=== PATIENT | female | born 1945 | race Caucasian/White ===

== ENCOUNTER 2020-02-09 20:02 | Emergency (ER) | payer MEDICARE, OTHER ==
[~2020-02-09] VITALS: Ht 162 cm; Wt 168.0 kg
[2020-02-09] MEDS ORDERED: fentaNYL INJECTION 100 MCG/2 ML AMP IVP ONE (20:15)
--- NOTE | 2020-02-09 20:23 | ED Lower Extremity ---
General Chief Complaint: Lower Extremity Stated Complaint: R KNEE PAIN Source: patient Exam Limitations: no limitations History of Present Illness Date Seen by Provider: Feb 09, 2020 Time Seen by Provider: 20:25 Initial Comments To ER by EMS and fire department (called for lift assist) after reports of severe right knee pain. This began while she was getting into her car. She had all of her weight placed on the right leg and complains of sudden onset of right knee pain as it bent behind her. This occurred during a twisting mechanism and she did not fall. Onset: just prior to arrival Severity: moderate Pain/Injury Location: right knee Method of Injury: twisted Modifying Factors: Worse With Movement Allergies and Home Medications Allergies Coded Allergies: No Known Drug Allergies (Unverified , 02/09/20) Patient Home Medication List Home Medication List Reviewed: Yes Review of Systems Constitutional: see HPI EENTM: see HPI Respiratory: no symptoms reported Cardiovascular: no symptoms reported Genitourinary: no symptoms reported Musculoskeletal: see HPI Skin: no symptoms reported Psychiatric/Neurological: No Symptoms Reported Physical Exam Vital Signs Vital Signs - First Documented 02/09/20 21:20 Temp 36.4 Pulse 88 Resp 20 B/P (MAP) 192/110 (137) Pulse Ox 93 O2 Delivery Room Air Capillary Refill : Height, Weight, BMI Height: 5'3.00" Weight: 308lbs. oz. kg; BMI Method: General Appearance: WD/WN, no apparent distress, obese Respiratory: no respiratory distress, no accessory muscle use Gastrointestinal: normal bowel sounds, non tender, soft Hips: bilateral hip non-tender, bilateral hip normal inspection, bilateral hip normal range of motion Legs: bilateral leg non-tender, bilateral leg normal inspection, bilateral leg normal range of motion Knees: right knee other (body habitus precludes good evaluation of the knee, her pannus hangs down over the right knee. Due to obesity I'm unable to tell if there is any joint effusion or deformity.) Ankles: bilateral ankle non-tender, bilateral ankle normal inspection, bilateral ankle normal range of motion Feet: bilateral foot non-tender, bilateral foot normal inspection, bilateral foot normal range of motion Neurologic/Psychiatric: alert, normal mood/affect Skin: normal color, warm/dry She is in quite a bit of pain, EMS gave 100 g of fentanyl in route to the hospital, I gave an additional 75 g here. She has a strong posterior tibial pulse. Progress/Results/Core Measures Results/Orders My Orders Orders - JUAN JONES APRN Knee, Right, 3 Views (02/09/20 20:03) Fentanyl Injection (Sublimaze Injection (02/09/20 20:15) Medications Given in ED Current Medications Medications Dose Ordered Sig/Lenny Route Start Time Stop Time Status Last Admin Dose Admin Fentanyl Citrate 75 mcg ONCE ONCE IVP 02/09/20 20:15 02/09/20 20:16 DC 02/09/20 20:37 75 MCG Vital Signs/I&O 02/09/20 02/09/20 21:20 22:05 Temp 36.4 Pulse 88 82 Resp 20 18 B/P (MAP) 192/110 (137) 164/83 Pulse Ox 93 94 O2 Delivery Room Air Room Air Diagnostic Imaging Diagonstic Imaging: Xray Comments NAME: ARMANDO YANG MED REC#: [id number] PT STATUS: REG ER : 1945 PHYSICIAN: JUAN JONES APRN ADMIT DATE: 02/09/20/ER Draft Date of Exam:02/09/20 KNEE, RIGHT, 3 VIEWS INDICATION: Right knee pain after fall. COMPARISON: None available. TECHNIQUE: Three views of right knee were obtained. FINDINGS: Severe tricompartmental degenerative changes are present. This includes multiple large marginal osteophytes which could potentially obscure a nondisplaced fracture. Allowing for this, no discrete fracture. No knee joint effusion. Subcutaneous edema. IMPRESSION: Severe tricompartmental osteoarthritis without appreciable superimposed acute fracture. Dictated on workstation # [id number] Dict: 02/09/202030 Trans: 02/09/202032 [facility] [id number] Interpreted by: MARYANN PALACIOS MD Electronically signed by: Departure Communication (Admissions) 6684-plain films are unremarkable. Patient states she does wants to go home. She has a strong palpable posterior tibial pulse. She has no tenderness to palpation over the right ankle or lower leg or upper leg. She states that she has a wheelchair at home and her home is set up with a ramp and is wheelchair accessible. She does have a cane that she can used to walk with. Her will be in route to pick her up and bring the wheelchair from home with him. 2135-pt was able to transfer self from bed to wheelchair with myself krishan and ally at standby. 2199-was able to get pt into car with minimal assistance other than pulling her back on a slide sheet. Impression Primary Impression: Acute internal derangement of right knee Disposition: HOME, SELF-CARE Condition: Stable Departure-Patient Inst. Decision time for Depature: 21:07 Referrals: SIMEON PENA MD (PCP) Primary Care Physician Patient Instructions: Internal Derangement of the Knee Add. Discharge Instructions: 1. Ice pack to the knee. Return to ER for any concerns or worsening symptoms. Follow-up with your doctor this week. All discharge instructions reviewed with patient and/or family. Voiced understanding. JUAN JONES SET UP MECHANIC AUTOMATIC LINE Feb 09, 2020 20:23
--- NOTE | 2020-02-09 20:34 | Diagnostic Imaging Report ---
INDICATION: Right knee pain after fall. COMPARISON: None available. TECHNIQUE: Three views of right knee were obtained. FINDINGS: Severe tricompartmental degenerative changes are present. This includes multiple large marginal osteophytes which could potentially obscure a nondisplaced fracture. Allowing for this, no discrete fracture. No knee joint effusion. Subcutaneous edema. IMPRESSION: Severe tricompartmental osteoarthritis without appreciable superimposed acute fracture. Dictated by: Dictated on workstation # [id number]
--- NOTE | 2020-02-09 21:00 | NUR ---
Pt arrives after twisting her leg while trying to get into a car causing her to go to the ground. Pt c/o right knee pain. Pt is obese and was unable to get up on her own; family had to call 911 to assist and brought her to the ED for x-ray. Pt has slight bruising to the right knee but no other deformity or swelling is noted.
[2020-02-09 22:05] VITALS: BP 164/83
--- NOTE | 2020-02-09 22:15 | NUR ---
Pt assisted to her vehicle by Shemar Bland, this nurse, and Dian. Pt was able to get herself into the back of the family vehicle with our assistance. Discussed with the patient how she could safely get herself out of the vehicle at home.
== END 2020-02-09 22:07 | disposition home or self-care (01) ==
LOC: EDUNIT# 20:02 → ER 20:05
DX: M23.91 Unspecified internal derangement of right knee (principal); E66.9 Obesity, unspecified
CPT/HCPCS: 73562

== ENCOUNTER 2020-04-27 18:29 | Inpatient (IN) | payer MEDICARE, OTHER ==
[~2020-04-27] VITALS: Ht 160 cm; Wt 175.6 kg
[2020-04-27] MEDS ORDERED: diphenhydrAMINE 25 MG TAB (BENADRYL) PO PRN (19:45)
[2020-04-27] MEDS ORDERED: ONDANSETRON 4 MG/2 ML (SDV) Z0FRAN IVP PRN (19:45)
[2020-04-27] MEDS ORDERED: VANCOMYCIN INJECTION 1,000 MG in NS (IVPB) 250 ML IV SCH (19:45)
[2020-04-27] MEDS ORDERED: morphine INJ 10 MG/ML 1ML (SYR OR VIAL) IVP PRN (19:45)
[2020-04-27] MEDS ORDERED: MELATONIN 3 MG TABLET PO PRN (19:45)
[2020-04-27] MEDS ORDERED: ALPRAZolam 0.25 MG (XANAX) TAB PO PRN (19:45)
[2020-04-27] MEDS ORDERED: CALCIUM CARBONATE 500 MG (TUMS) TAB.CHEW PO PRN (19:45)
[2020-04-27] MEDS ORDERED: DOCUSATE SODIUM 100 MG (COLACE) CAP PO PRN (19:45)
[2020-04-27] MEDS ORDERED: LOPERAMIDE 2 MG (IMODIUM) TABLET PO PRN (19:45)
[2020-04-27] MEDS ORDERED: ENOXAPARIN 60 MG/0.6 ML (LOVENOX) SYR ONE (21:01)
[2020-04-27] MEDS ORDERED: NS IV 1000 ML 1,000 ML ONE (21:01)
[2020-04-27] MEDS ORDERED: NS (IVPB) 250 ML ONE (21:01)
[2020-04-27] MEDS ORDERED: VANCOMYCIN 1000 MG/VIAL ONE (21:03)
[2020-04-27] MEDS: ACETAMINOPHEN 500 MG TAB (TYLENOL) PO PRN (21:44)
[2020-04-27] MEDS: SENNA W/DOCUSATE (SENOKOT S) TABLET PO SCH (21:58)
[2020-04-27] MEDS: NS IV 1000 ML 1,000 ML IV SCH (21:59)
[2020-04-27 22:04] LABS: BASOPHILS % (AUTO) 0 % (0-10); EOSINOPHILS % (AUTO) 0 % (0-10); HEMATOCRIT 36 % (35-52); HEMOGLOBIN 11.3 g/dL (11.5-16.0); LYMPHOCYTES # (AUTO) 0.5 10^3/uL (1.0-4.0); LYMPHOCYTES % (AUTO) 2 % (12-44); MEAN CORPUSCULAR HEMOGLOBIN 28 pg (25-34); MEAN CORPUSCULAR HGB CONC 32 g/dL (32-36); MEAN CORPUSCULAR VOLUME 88 fL (80-99); MEAN PLATELET VOLUME 9.5 fL (9.0-12.2); MONOCYTES # (AUTO) 1.2 10^3/uL (0.0-1.0); MONOCYTES % (AUTO) 5 % (0-12); NEUTROPHILS # (AUTO) 21.5 10^3/uL (1.8-7.8); NEUTROPHILS % (AUTO) 92 % (42-75); PLATELET COUNT 301 10^3/uL (130-400); WHITE BLOOD COUNT 23.4 10^3/uL (4.3-11.0)
[2020-04-27 22:15] LABS: ALBUMIN 3.3 GM/DL (3.2-4.5); POTASSIUM 4.4 MMOL/L (3.6-5.0)
[2020-04-27 22:16] LABS: CALCIUM 9.8 MG/DL (8.5-10.1)
[2020-04-27 22:18] LABS: TOTAL PROTEIN 6.6 GM/DL (6.4-8.2)
[2020-04-27 22:21] LABS: CREATININE SERUM 1.24 MG/DL (0.60-1.30)
[2020-04-27 22:26] LABS: ANISOCYTOSIS SLIGHT; BAND NEUTROPHILS 13 %; BASOPHILS % (MANUAL) 0 %; EOSINOPHILS % (MANUAL) 0 %; HYPOCHROMASIA SLIGHT; LYMPHOCYTES % (MANUAL) 2 %; MONOCYTES % (MANUAL) 2 %; NEUTROPHILS % (MANUAL) 83 %; ROULEAUX SLIGHT; TOXIC GRANULATION/VACUOLAZATIO 1+
[2020-04-28] MEDS ORDERED: NS (IVPB) 250 ML ONE (00:19)
[2020-04-28] MEDS ORDERED: VANCOMYCIN 500 MG/VIAL IV ONE (00:20)
[2020-04-28] MEDS ORDERED: VANCOMYCIN 1500 MG/NS 500 ML IVPB IV SCH ×2 (00:30)
[2020-04-28] MEDS: CEFEPIME INJECTION 1,000 MG in WATER (STERILE) FOR INJECTION 10 ML IV SCH ×4 (00:40→18:09)
[2020-04-28] MEDS: ENOXAPARIN 40 MG/0.4 ML (LOVENOX) SYR SC SCH ×3 (00:40→21:51)
[2020-04-28] MEDS: HYDROcodone/APAP 5 MG/325 MG (LORTAB) TAB PO PRN ×2 (03:11→12:21)
[2020-04-28 03:29] LABS: BASOPHILS # (AUTO) 0.1 10^3/uL (0.0-0.1); BASOPHILS % (AUTO) 0 % (0-10); EOSINOPHILS % (AUTO) 0 % (0-10); HEMATOCRIT 33 % (35-52); HEMOGLOBIN 10.5 g/dL (11.5-16.0); LYMPHOCYTES % (AUTO) 4 % (12-44); MEAN CORPUSCULAR HEMOGLOBIN 28 pg (25-34); MEAN CORPUSCULAR HGB CONC 32 g/dL (32-36); MEAN CORPUSCULAR VOLUME 89 fL (80-99); MEAN PLATELET VOLUME 9.4 fL (9.0-12.2); MONOCYTES % (AUTO) 4 % (0-12); NEUTROPHILS # (AUTO) 21.3 10^3/uL (1.8-7.8); NEUTROPHILS % (AUTO) 91 % (42-75); PLATELET COUNT 288 10^3/uL (130-400); WHITE BLOOD COUNT 23.6 10^3/uL (4.3-11.0)
[2020-04-28 03:44] LABS: ALBUMIN 3.1 GM/DL (3.2-4.5)
[2020-04-28 03:45] LABS: POTASSIUM 4.4 MMOL/L (3.6-5.0)
[2020-04-28 03:46] LABS: CALCIUM 8.5 MG/DL (8.5-10.1)
[2020-04-28 03:47] LABS: TOTAL PROTEIN 6.2 GM/DL (6.4-8.2)
[2020-04-28 03:49] LABS: BILIRUBIN,TOTAL 1.1 MG/DL (0.1-1.0)
[2020-04-28 03:50] LABS: PHOSPHORUS 4.3 MG/DL (2.3-4.7)
[2020-04-28 03:51] LABS: CREATININE SERUM 1.25 MG/DL (0.60-1.30)
[2020-04-28 03:54] LABS: MAGNESIUM 1.7 MG/DL (1.6-2.4)
[2020-04-28 06:00] VITALS: BP 120/54
[2020-04-28] MEDS: POTASSIUM CL 10MEQ/50ML IVPB 50 ML IV SCH (06:14)
[2020-04-28] MEDS: KCL 20 MEQ TAB (K-DUR) PO SCH (06:14)
[2020-04-28] MEDS: MAGNESIUM 1 GM/100 ML IVPB 100 ML IV SCH ×3 (06:14→06:32)
[2020-04-28] MEDS: NS IV 1000 ML 1,000 ML IV SCH ×3 (06:29→21:51)
--- NOTE | 2020-04-28 07:34 | NUR ---
Vanco - trough ordered for 04/29 @ 1100. Goal is 15 to 20.
--- NOTE | 2020-04-28 08:22 | Diagnostic Imaging Report ---
Indication: Sepsis, urinary tract infection and pneumonia Single AP view of the chest is obtained. Comparison is made to study one day earlier. There has been mild increase in pulmonary venous congestion and probable mild bilateral perihilar edema. Heart size at the upper limits of normal. Right jugular central venous catheter is in stable position with tip reaching the superior vena cava/right atrial junction. No pneumothorax is seen. IMPRESSION: Increasing pulmonary venous congestion and possible mild perihilar pulmonary edema. Dictated by: Dictated on workstation # [id number]
[2020-04-28] MEDS: SENNA W/DOCUSATE (SENOKOT S) TABLET PO SCH ×2 (08:58→20:54)
--- NOTE | 2020-04-28 10:36 | History & Physical-Hospitalist ---
JOSHUANeptaliLC LOVE, 04/28/20 1036: History of Present Illness HPI/Chief Complaint Ms. Kulkarni is a 75-year-old female who presents from the [place] ED for increasing shortness of breath. Per ED note, she began having chills, shortness of breath and cough for 3 days along with incontinence and decreased appetite for the same time period. In the ED, patient was satting 89% on RA. WBC 18, Hg 12.9, Hct 41.4, platelets 374. Na 141, K 5.1, Cl 103, CO2 22, anion gap 21, BUN 19, Cr 1.07, glucose 97. ABG pH 7.49, pCO2 35, pO2 51, HCO3 26. CRP 11.14. Lactic acid 19.6, mycoplasma negative. U/A 4+ bacteria, trace blood, 1+ leukocyte esterase, trace protein. Source: RN/ (notes from [facility]) Date Seen 04/28/20 Time Seen by a Provider: 09:20 Attending Physician Renae Diaz Rachel L MD Referring Physician Date of Admission Apr 27, 2020 at 20:42 Home Medications & Allergies Home Medications Reviewed patient Home Medication Reconciliation performed by pharmacy medication reconciliations weight reducing technician and/or nursing. Patients Allergies have been reviewed. Allergies Allergies Coded Allergies No Known Drug Allergies (Ivhedjvwdm79/29/20) Past Ngjzxjc-Bvfibb-Mpkzaf Hx Patient Social History Alcohol Use: Denies Use Recreational Drug Use: No Smoking Status: Never a Smoker Past Medical History Surgeries: Abdominal (hernia repair x2), Section (x2), Hysterectomy (with BSO) Cardiac: High Cholesterol, Hypertension : No Genitourinary: Kidney Stones Gastrointestinal: Abdominal Hernia (repaired x2) Musculoskeletal: Rheumatoid Arthritis Endocrine: Diabetes, Insulin dep Family History No Pertinent Family Hx Review of Systems Constitutional: chills Physical Exam Physical Exam Vital Signs Vital Signs - First Documented 04/27/20 04/27/20 04/27/20 20:42 20:50 21:44 Temp 37.9 Pulse 99 Resp 22 B/P (MAP) 150/84 (106) Pulse Ox 93 O2 Delivery Nasal Cannula O2 Flow Rate 5.00 Capillary Refill : Height, Weight, BMI Height: 5'3.00" Weight: 308lbs. oz. kg; 65.58 BMI Method: General Appearance: Obese Neck: No Lymphadenopathy (L), No Lymphadenopathy (R) Respiratory: Lungs Clear, Normal Breath Sounds Cardiovascular: Regular Rate, Rhythm Gastrointestinal: Normal Bowel Sounds, Soft Extremity: Pedal Edema Neurologic/Psychiatric: Alert, Oriented x3 Skin: Other (wound dehiscence) Results Results/Procedures Labs Laboratory Tests 04/27/20 21:37 04/28/20 03:05 Patient resulted labs reviewed. Imaging: Reviewed Imaging Films, Reviewed Imaging Report Assessment/Plan Assessment and Plan Acute hypoxic respiratory failure secondary to pneumonia * Pt currently on 5L NC * Is a COVID PUI at this time * On cefepime and vancomycin, day 1 Urinary tract infection * U/A from [facility] revealed 4+ bacteria, trace blood, 1+ leukocyte esterase, trace protein * Started on cefepime and vancomycin, day 1 * Mendez placed 04/27 for incontinence Insulin-dependent diabetes mellitus type 2, well-controlled * Will stop home Victoza, pioglitazone, glipizide * Continue home levemir 25iu HS * SSI A * Accuchecks ordered Hypertension * Pt takes home losartan * Will not restart at this time and will monitor for further changes Wound care * Patient states she has wound care but is unsure of accurate medications * Will order wound care consult * Discuss with son regarding medications Diet: CHO 60 DVT PPx: lovenox FULL CODE Dispo: likely >2midnights for treatment of acute respiratory failure Copy Copies To 1: LYNNE FOOTE KATHLEEN M MD 04/28/20 1228: Past Rjpqwfy-Codntg-Faqrsg Hx Past Med/Social Hx: Reviewed Nursing Past Med/Soc Hx Patient Social History Marrital Status: Employed/Student: retired Past Medical History Gastrointestinal: Abdominal Hernia (repaired x2) Musculoskeletal: Rheumatoid Arthritis Endocrine: Diabetes, Insulin dep Assessment/Plan Admission Diagnosis Acute hypoxic respiratory failure secondary to pneumonia * Pt currently on 5L NC * Is a COVID PUI at this time * On cefepime and vancomycin, day 1 Urinary tract infection * U/A from [facility] revealed 4+ bacteria, trace blood, 1+ leukocyte esterase, trace protein * Started on cefepime and vancomycin, day 1 * Mendez placed 04/27 for incontinence Insulin-dependent diabetes mellitus type 2, well-controlled * Will stop home Victoza, pioglitazone, glipizide * Continue home levemir 25iu HS * SSI A * Accuchecks ordered Hypertension * Pt takes home losartan * Will not restart at this time and will monitor for further changes Wound care * Patient states she has wound care but is unsure of accurate medications * Will order wound care consult * Discuss with son regarding medications Diet: CHO 60 DVT PPx: lovenox FULL CODE Dispo: likely >2midnights for treatment of acute respiratory failure Admission Status: Inpatient Order (span 2 midnights) Reason for Inpatient Admission: Multiple comorbities Copy Copies To 1: LYNNE FOOTE DO Supervisory-Addendum Brief Verification & Attestation Participated in pt care: history, MDM, physical Personally performed: exam, history, MDM, supervision of care Care discussed with: Medical Student Procedures: n/a Verification and Attestation of Medical Student E/M Service A medical student performed and documented this service in my presence. I reviewed and verified all information documented by the medical student and made modifications to such information, when appropriate. I personally performed the physical exam and medical decision making. Jose Palm, Apr 29, 2020,14:20 Patient notes that her biggest complaint was that she had been having chills for the last 2 to 3 days. She had some shortness of breath and had to be placed on 5 L nasal cannula. Rapid Covid and test was negative PCR is pending at this time. Patient is primarily concerned about the wound care of a dehisced suture line underneath her panniculus which has been being packed by her . She does not know the name of the packing that they have been using but she says it is in long strips. Her physical exam is unremarkable other than the obesity and I was not able to identify where the packing had been because of the weight of the panniculus. Plan to transfer to the fourth floor as she is currently hemodynamically stable and requiring minimal oxygen. Chest x-ray shows diffuse fluffy infiltrates that are concerning and so we will monitor closely for any deterioration. LC LANDAVERDE, Apr 28, 2020 10:36 JOSE PALM MD Apr 28, 2020 12:28
--- NOTE | 2020-04-28 11:00 | NUR ---
THIS RN TRANSPORTED PATIENT TO [facility] VIA BED. PATIENT BELONGINGS (GLASSES, ROSARY AND CANE) PLACED AT PATIENT BEDSIDE. REPORT GIVEN TO KAYCEE MEYER. CALL LIGHT WITHIN REACH, PATIENT POSITIONED IN BED WITH ASSISTANCE FROM KAYCEE MEYER. PATIENT INTRODUCED TO SURROUNDINGS.
--- NOTE | 2020-04-28 11:14 | NUR ---
Patient to room 418 at this time. Patient oriented to surroundings and staff. Denies needs or c/o at this time. Report from Anders
[2020-04-28] MEDS ORDERED: CEFEPIME 1 GM/10 ML (MAXIPIME) VIAL ONE ×2 (12:11→16:22)
[2020-04-28] MEDS: RT-ALBUTEROL INHALER HFA (VENTOLIN HFA) 18 GM IH SCH (14:56)
--- NOTE | 2020-04-28 15:32 | NUR ---
NOTIFIED BY RT, THAT FOLLOWING PATIENT ADMINISTRATION TO ALBUTEROL 1 PUFF, PATIENT REPORTED TO RT SHE IS ALLERGIC TO "SULFUR" IMMEDIATE ASSESSMENT AND PRESENCE AT BEDSIDE BY THIS RN. PHARMACY NOTIFIED AND ORDERED TO CLARIFY "SULFUR". PATIENT STATED IT IS THE SULFUR THAT IS IN [place] AND SHE HAD ANAPHYLACTIC RXN WITH [place] ADMINISTRATION. OTHER REPORTED ALLERGIES CODED, INCLUDING BENADRYL REPORTED BY PATIENT. DR MARTIN NOTIFIED OF THE ABOVE AND FLAGGING OF MEDICATIONS THAT ARE PROFILED ON THE JUN. NO NEW ORDERS. PATIENT IS CURRENTLY TALKING ON PHONE WITH FAMILY AT THIS TIME. PATIENT DID REPORT TO THIS RN SHE ONCE HAD AN ALLERGY TO PCN BUT NO LONGER IS ALLERGIC TO THIS MEDICATION, SHE WAS GIVEN IT DURING HER MOST RECENT WOUND INFECTION.
--- NOTE | 2020-04-28 16:00 | NUR ---
PATIENT HAS REMAINED ASYMPTOMATIC. NO S/S ALLERGIC RXN. DENIES NEEDS OR C/O. RN HAS REMAINED AT BEDSIDE. PATIENT COMMUNICATES FREQUENTLY WITH FAMILY VIA ROOM PHONE. CONT TO MONITOR.
[2020-04-28] MEDS ORDERED: LOSA100T57 PO (16:36)
[2020-04-28] MEDS ORDERED: GLIP5TAB13 (16:36)
[2020-04-28] MEDS ORDERED: PRAV20TA3 PO (16:36)
[2020-04-28] MEDS ORDERED: INSU100I29 SC (16:36)
[2020-04-28] MEDS ORDERED: PIOG15TA67 PO (16:36)
[2020-04-28] MEDS ORDERED: LIRA0.6P3 SC (16:36)
[2020-04-28] MEDS ORDERED: CALCIUM (16:39)
[2020-04-28] MEDS ORDERED: CHOL500049 PO (16:39)
[2020-04-28] MEDS ORDERED: ASCORBIC ACID (16:39)
--- NOTE | 2020-04-28 17:22 | NUR ---
NEGATIVE COVID PCR RESULTS FAXED FROM [facility] AND PLACED IN CHART. DR MARTIN NOTIFIED. NEW ORDERS TO D/C ISOLATION. PATIENT EDUCATED ON NEW ORDERS. DENIES NEEDS OR C/O AT THIS TIME.
[2020-04-28] MEDS: VANCOMYCIN 1500 MG/NS 500 ML IVPB IV SCH ×2 (18:09)
[2020-04-28] MEDS: inSUlin ASPART (NovoLOG) 1 UNIT/0.01 ML (CHARGE PER UNIT) SC SCH (21:35)
[2020-04-29] MEDS ORDERED: WATER (STERILE) FOR INJECTION 10 ML ONE ×2 (00:15→05:39)
[2020-04-29] MEDS ORDERED: CEFEPIME 1 GM/10 ML (MAXIPIME) VIAL ONE ×2 (00:15→05:39)
[2020-04-29] MEDS: CEFEPIME INJECTION 1,000 MG in WATER (STERILE) FOR INJECTION 10 ML IV SCH ×6 (00:32→23:14)
[2020-04-29] MEDS: RT-ALBUTEROL INHALER HFA (VENTOLIN HFA) 18 GM IH SCH ×3 (00:48→14:27)
[2020-04-29 05:07] LABS: BASOPHILS % (AUTO) 0 % (0-10); EOSINOPHILS # (AUTO) 0.2 10^3/uL (0.0-0.3); EOSINOPHILS % (AUTO) 2 % (0-10); HEMATOCRIT 33 % (35-52); LYMPHOCYTES % (AUTO) 8 % (12-44); MEAN CORPUSCULAR HEMOGLOBIN 28 pg (25-34); MEAN CORPUSCULAR HGB CONC 31 g/dL (32-36); MEAN CORPUSCULAR VOLUME 90 fL (80-99); MONOCYTES # (AUTO) 1.1 10^3/uL (0.0-1.0); MONOCYTES % (AUTO) 9 % (0-12); NEUTROPHILS % (AUTO) 81 % (42-75); PLATELET COUNT 302 10^3/uL (130-400); WHITE BLOOD COUNT 12.3 10^3/uL (4.3-11.0)
[2020-04-29 05:16] LABS: POTASSIUM 4.1 MMOL/L (3.6-5.0)
[2020-04-29 05:21] LABS: CREATININE SERUM 1.1 MG/DL (0.60-1.30); PHOSPHORUS 3.1 MG/DL (2.3-4.7)
[2020-04-29] MEDS: POTASSIUM CL 10MEQ/50ML IVPB 50 ML IV SCH (05:26)
[2020-04-29] MEDS: MAGNESIUM 1 GM/100 ML IVPB 100 ML IV SCH (05:27)
[2020-04-29] MEDS: inSUlin ASPART (NovoLOG) 1 UNIT/0.01 ML (CHARGE PER UNIT) SC SCH ×4 (05:27→21:00)
[2020-04-29] MEDS: KCL 20 MEQ TAB (K-DUR) PO SCH (05:27)
[2020-04-29] MEDS: NS IV 1000 ML 1,000 ML IV SCH (06:01)
--- NOTE | 2020-04-29 08:02 | Progress Note - Hospitalist ---
Subjective HPI/CC On Admission Date Seen by Provider: Apr 29, 2020 Time Seen by Provider: 12:00 Ms. Kulkarni is a 75-year-old female who presents from the [place] ED for increasing shortness of breath. Per ED note, she began having chills, shortness of breath and cough for 3 days along with incontinence and decreased appetite for the same time period. In the ED, patient was satting 89% on RA. WBC 18, Hg 12.9, Hct 41.4, platelets 374. Na 141, K 5.1, Cl 103, CO2 22, anion gap 21, BUN 19, Cr 1.07, glucose 97. ABG pH 7.49, pCO2 35, pO2 51, HCO3 26. CRP 11.14. Lactic acid 19.6, mycoplasma negative. U/A 4+ bacteria, trace blood, 1+ leukocyte esterase, trace protein. Subjective/Events-last exam Patient much better Updated on plan ECHO ordered Elevated BNP IV abx maintained Sugars improved Pain controlled Wheelchair will be brought in by Packing wound daily Review of Systems General: Fatigue, Malaise Pulmonary: Dyspnea Focused Exam Lactate Level 04/27/20 21:37: Lactic Acid Level 0.97 Objective Exam Vital Signs Vital Signs Date Time Temp Pulse Resp B/P (MAP) Pulse Ox O2 Delivery O2 Flow Rate FiO2 04/29/20 18:05 95 Nasal Cannula 3.00 04/29/20 16:25 36.2 74 19 139/65 (89) Capillary Refill : Less Than 3 Seconds General Appearance: No Apparent Distress, WD/WN, Chronically ill Respiratory: Chest Non Tender, Lungs Clear, Normal Breath Sounds, No Accessory Muscle Use, No Respiratory Distress Cardiovascular: Regular Rate, Rhythm, No Edema, No Gallop, No JVD, No Murmur, Normal Peripheral Pulses Neurologic/Psychiatric: Alert, Oriented x3, No Motor/Sensory Deficits, Normal Mood/Affect Results/Procedures Lab Laboratory Tests 04/29/20 04:13 Patient resulted labs reviewed. Imaging: Reviewed Imaging Films, Reviewed Imaging Report Assessment/Plan Assessment and Plan Assess & Plan/Chief Complaint Assessment: Acute hypoxic respiratory failure secondary to pneumonia: cefepime and vancomycin, day 2 Urinary tract infection Insulin-dependent diabetes mellitus type 2, well-controlled Hypertension Wound care DVT PPx: Lovenox Plan: Wound care Pain management Insulin Abx MICHAELA ELLISON DO Apr 29, 2020 08:02
[2020-04-29] MEDS: SENNA W/DOCUSATE (SENOKOT S) TABLET PO SCH ×2 (09:33→20:16)
[2020-04-29] MEDS: ENOXAPARIN 60 MG/0.6 ML (LOVENOX) SYR SC SCH ×2 (09:38→20:37)
[2020-04-29] MEDS ORDERED: TROUGH ORDER-PHARMACY XX NR (11:00)
[2020-04-29] MEDS: VANCOMYCIN 1500 MG/NS 500 ML IVPB IV SCH ×2 (13:39)
--- NOTE | 2020-04-29 14:35 | NUR ---
FAMILY BROUGHT PATIENTS OWN WHEELCHAIR, ASSISTED PATIENT TO SIT UP IN W/C, CALL LIGHT WITHIN REACH
[2020-04-29 16:25] VITALS: BP 139/65
[2020-04-29] MEDS: ACETAMINOPHEN 500 MG TAB (TYLENOL) PO PRN (16:38)
[2020-04-29] MEDS ORDERED: FUROSEMIDE 40 MG/4 ML INJ (LASIX) IVP ONE (17:15)
[2020-04-29] MEDS: RT-ALBUTEROL INHALER HFA (VENTOLIN HFA) 18 GM IH PRN (18:04)
[2020-04-29] MEDS ORDERED: FUROSEMIDE 40 MG/4 ML INJ (LASIX) ONE (18:15)
--- NOTE | 2020-04-29 18:33 | NUR ---
ADDITION TO ECHO FILLED OUT AND GIVEN TO CORRESPONDENCE COORDINATOR
[2020-04-29 20:25] VITALS: BP 141/65
[2020-04-29 23:29] VITALS: BP 137/64
[2020-04-30] MEDS: RT-ALBUTEROL INHALER HFA (VENTOLIN HFA) 18 GM IH PRN (02:08)
[2020-04-30] MEDS: RT-ALBUTEROL INHALER HFA (VENTOLIN HFA) 18 GM IH SCH ×2 (02:09→06:03)
[2020-04-30 04:09] VITALS: BP 168/73
[2020-04-30 04:50] LABS: BASOPHILS % (AUTO) 0 % (0-10); EOSINOPHILS # (AUTO) 0.2 10^3/uL (0.0-0.3); EOSINOPHILS % (AUTO) 2 % (0-10); HEMATOCRIT 32 % (35-52); HEMOGLOBIN 9.9 g/dL (11.5-16.0); LYMPHOCYTES # (AUTO) 0.9 10^3/uL (1.0-4.0); LYMPHOCYTES % (AUTO) 9 % (12-44); MEAN CORPUSCULAR HEMOGLOBIN 28 pg (25-34); MEAN CORPUSCULAR HGB CONC 31 g/dL (32-36); MEAN CORPUSCULAR VOLUME 90 fL (80-99); MEAN PLATELET VOLUME 9.5 fL (9.0-12.2); MONOCYTES # (AUTO) 1.1 10^3/uL (0.0-1.0); MONOCYTES % (AUTO) 10 % (0-12); NEUTROPHILS # (AUTO) 8.7 10^3/uL (1.8-7.8); NEUTROPHILS % (AUTO) 79 % (42-75); PLATELET COUNT 306 10^3/uL (130-400); WHITE BLOOD COUNT 11.1 10^3/uL (4.3-11.0)
[2020-04-30 05:00] LABS: POTASSIUM 4.1 MMOL/L (3.6-5.0)
[2020-04-30 05:02] LABS: TOTAL PROTEIN 6.3 GM/DL (6.4-8.2)
[2020-04-30 05:04] LABS: BILIRUBIN,TOTAL 0.7 MG/DL (0.1-1.0)
[2020-04-30 05:06] LABS: CREATININE SERUM 1.05 MG/DL (0.60-1.30)
[2020-04-30] MEDS: POTASSIUM CL 10MEQ/50ML IVPB 50 ML IV SCH (05:42)
[2020-04-30] MEDS: KCL 20 MEQ TAB (K-DUR) PO SCH (05:43)
[2020-04-30] MEDS: inSUlin ASPART (NovoLOG) 1 UNIT/0.01 ML (CHARGE PER UNIT) SC SCH ×2 (05:43→10:47)
[2020-04-30] MEDS: MAGNESIUM 1 GM/100 ML IVPB 100 ML IV SCH (05:43)
[2020-04-30] MEDS: VANCOMYCIN 1500 MG/NS 500 ML IVPB IV SCH ×2 (06:29)
[2020-04-30] MEDS: CEFEPIME INJECTION 1,000 MG in WATER (STERILE) FOR INJECTION 10 ML IV SCH ×2 (06:29→11:34)
[2020-04-30 07:42] VITALS: BP 141/74
[2020-04-30] MEDS: ENOXAPARIN 60 MG/0.6 ML (LOVENOX) SYR SC SCH (07:54)
[2020-04-30] MEDS: ACETAMINOPHEN 500 MG TAB (TYLENOL) PO PRN (07:54)
[2020-04-30] MEDS: SENNA W/DOCUSATE (SENOKOT S) TABLET PO SCH (07:57)
[2020-04-30] MEDS ORDERED: GLIP10TA13 PO (08:49)
[2020-04-30] MEDS ORDERED: CHOL200014 PO (08:49)
[2020-04-30] MEDS ORDERED: VIT C PO (08:49)
[2020-04-30] MEDS ORDERED: CALCIUM PO (08:49)
--- NOTE | 2020-04-30 08:50 | NUR ---
SPOKE WITH THE PT AND WENT THRU THE EXT MED HISTORY TO COMPLETE THE MED REC PT WAS ABLE TO NAME HER MEDICATIONS WELL WHEN/HOW SHE TAKES EACH GLIPIZIDE 10MG- DIRECTIONS ON THE EXT MED HISTORY SHOW TAB DAILY HOWEVER PT SAYS SHE IS TAKING TAB BID OTC MEDS: CALCIUM W/ VIT C VIT D3
[2020-04-30] MEDS ORDERED: FUROSEMIDE 40 MG/4 ML INJ (LASIX) IVP ONE (10:00)
[2020-04-30] MEDS ORDERED: FURO-125 PO (10:13)
[2020-04-30] MEDS ORDERED: LINE600T12 PO (10:13)
[2020-04-30] MEDS ORDERED: CEFD300C3 PO (10:13)
--- NOTE | 2020-04-30 10:14 | D/C HH Face to Face Order ---
D/C Face to Face Orders Reconcile Patient Problems Problems Reviewed?: Yes Instructions for Patient [facility] Home Health Patient Instructions/FollowUp: Dr Dai in 1 week Physician to follow Patient: Malaika Discharge Diet for Home: ADA Diet Patient Problems: UTI PNA surgical wound Patient Data-Allergies,Ht & Wt Patient Allergies: Coded Allergies: acetaminophen (Verified Allergy, Severe, Anaphylaxis, 04/28/20) dextromethorphan (Verified Allergy, Severe, Anaphylaxis, 04/28/20) doxylamine (Verified Allergy, Severe, Anaphylaxis, 04/28/20) pseudoephedrine (Verified Allergy, Severe, Anaphylaxis, 04/28/20) Sulfa (Sulfonamide Antibiotics) (Verified Allergy, Unknown, 04/28/20) diphenhydramine (Verified Allergy, Unknown, Hives, 04/28/20) sulfite (Verified Allergy, Unknown, 04/28/20) Height (Feet): 5 Height (Inches): 3.00 Weight (Pounds): 308 Home Health Need/Face to Face Date of Face to Face: Apr 30, 2020 Clinical Findings: Generalized weakness and fatigue, Instability, Muscle weakness, Shortness of breath, Unsteady gait I have seen Pt [id number]: Yes Discharged To: Home Diagnosis/Conditions: UTI PNA New home o2 Patient is Homebound due to: Angel fall risk due to instabilty, Muscle weakness, Pain w/ambulation, Shortness of breath/distress Homebound Status Due to the above stated illness, injury or surgical procedure (medical condition or diagnosis) and associated clinical findings, the patient is homebound because of his/her inability to leave home except with aid of a supportive device and/or person AND leaving the home requires a considerable and taxing effort or is medically contraindicated. Pt req the following assistanc: Walker, Wheelchair Home Health Nursing Orders Home Health Services Order: Nursing Services, [facility]-Evaluate & Treat, Physical Therapy-Evaluate & Treat Certify Stmt I certify that this patient is under my care and that I, a nurse practitioner or a physician; a anatomic pathology assistant working with me, had a face to face encounter that - meets the physician face to face encounter requirements with this patient as dated. MICHAELA ELLISON DO Apr 30, 2020 10:14
--- NOTE | 2020-04-30 10:15 | Discharge Summary ---
Diagnosis/Chief Complaint Date of Admission Apr 27, 2020 at 20:42 Date of Discharge Discharge Date: Apr 30, 2020 Discharge Diagnosis Assessment: Acute hypoxic respiratory failure secondary to pneumonia: cefepime and vancomycin, day 2 Urinary tract infection Insulin-dependent diabetes mellitus type 2, well-controlled Hypertension Wound care DVT PPx: Lovenox Plan: Wound care Pain management Insulin Abx 04/30/20: DC home Home O2 [place] Discharge Summary Discharge Physical Examination Allergies: Coded Allergies: acetaminophen (Verified Allergy, Severe, Anaphylaxis, 04/28/20) dextromethorphan (Verified Allergy, Severe, Anaphylaxis, 04/28/20) doxylamine (Verified Allergy, Severe, Anaphylaxis, 04/28/20) pseudoephedrine (Verified Allergy, Severe, Anaphylaxis, 04/28/20) Sulfa (Sulfonamide Antibiotics) (Verified Allergy, Unknown, 04/28/20) diphenhydramine (Verified Allergy, Unknown, Hives, 04/28/20) sulfite (Verified Allergy, Unknown, 04/28/20) Vitals & I&Os Vital Signs Date Time Temp Pulse Resp B/P (MAP) Pulse Ox O2 Delivery O2 Flow Rate FiO2 04/30/20 14:30 36.4 73 20 147/75 96 Nasal Cannula 2.00 General Appearance: Alert, Oriented X3, Cooperative Respiratory: Clear to Auscultation Cardiovascular: Regular Rate Neuro: Normal Gait Hospital Course Was the Problem List Reviewed?: Yes Hospital course: Pt had a short hospital course, she was admitted to the ICU for fever, leukocytosis and sepsis from UTI and pneumonia, morbid obesity precluded an in- depth look at the chest X-ray but she was Covid negative. She was placed on empiric antibiotics of Cefepime and Vanc. Pt was ultimately able to recover quickly. She was given Lasix to decrease any volume overload from IV fluids, gave them through central line after she was moved over from [facility] ER. Home O2 evaluation found the Pt to be in need of 3 liters of oxygen. She will resume [facility] health at time of discharge. She was insistent on leaving so I sent in prescription for Zyvox and Omnicef for antibiotic coverage since I did not have a source. Morbid obesity is a significant issue. Labs (last 24 hrs) Laboratory Tests 04/27/20 20:42: Lab Scanned Report LAB Reports 04/27/20 21:37: White Blood Count 23.4H, Red Blood Count 4.05, Hemoglobin 11.3L, Hematocrit 36, Mean Corpuscular Volume 88, Mean Corpuscular Hemoglobin 28, Mean Corpuscular Hemoglobin Concent 32, Red Cell Distribution Width 17.2H, Platelet Count 301, Mean Platelet Volume 9.5, Immature Granulocyte % (Auto) 1, Neutrophils (%) (Auto) 92H, Lymphocytes (%) (Auto) 2L, Monocytes (%) (Auto) 5, Eosinophils (%) (Auto) 0, Basophils (%) (Auto) 0, Neutrophils # (Auto) 21.5H, Lymphocytes # (Auto) 0.5L, Monocytes # (Auto) 1.2H, Eosinophils # (Auto) 0.0, Basophils # (Auto) 0.0, Immature Granulocyte # (Auto) 0.2H, Neutrophils % (Manual) 83, Lymphocytes % (Manual) 2, Monocytes % (Manual) 2, Eosinophils % (Manual) 0, Basophils % (Manual) 0, Band Neutrophils 13, Toxic Granulation 1+, Hypochromasia SLIGHT, Anisocytosis SLIGHT, Rouleau SLIGHT, Sodium Level 138, Potassium Level 4.4, Chloride Level 101, Carbon Dioxide Level 24, Anion Gap 13, Blood Urea Nitrogen 21H, Creatinine 1.24, Estimat Glomerular Filtration Rate 42, BUN/Creatinine Ratio 17, Glucose Level 134H, Lactic Acid Level 0.97, Calcium Level 9.8, Corrected Calcium 10.4H, Total Bilirubin 1.0, Aspartate Amino Transf (AST/SGOT) 12, Alanine Aminotransferase (ALT/SGPT) 7, Alkaline Phosphatase 76, B-Type Natriuretic Peptide 206.0H, Total Protein 6.6, Albumin 3.3, Procalcitonin 0.32H 04/28/20 03:05: White Blood Count 23.6H, Red Blood Count 3.74L, Hemoglobin 10.5L, Hematocrit 33L , Mean Corpuscular Volume 89, Mean Corpuscular Hemoglobin 28, Mean Corpuscular Hemoglobin Concent 32, Red Cell Distribution Width 17.3H, Platelet Count 288, Mean Platelet Volume 9.4, Immature Granulocyte % (Auto) 1, Neutrophils (%) (Auto) 91H, Lymphocytes (%) (Auto) 4L, Monocytes (%) (Auto) 4, Eosinophils (%) (Auto) 0, Basophils (%) (Auto) 0, Neutrophils # (Auto) 21.3H, Lymphocytes # (Auto) 1.0, Monocytes # (Auto) 1.0, Eosinophils # (Auto) 0.0, Basophils # (Auto) 0.1, Immature Granulocyte # (Auto) 0.3H, Sodium Level 139, Potassium Level 4.4, Chloride Level 105, Carbon Dioxide Level 23, Anion Gap 11, Blood Urea Nitrogen 23H, Creatinine 1.25, Estimat Glomerular Filtration Rate 42, BUN/Creatinine Ratio 18, Glucose Level 135H, Calcium Level 8.5, Corrected Calcium 9.2, Total Bilirubin 1.1H, Aspartate Amino Transf (AST/SGOT) 15, Alanine Aminotransferase (ALT/SGPT) 6, Alkaline Phosphatase 69, Total Protein 6.2L, Albumin 3.1L, Phosphorus Level 4.3, Magnesium Level 1.7 04/28/20 10:52: Glucometer 145H 04/28/20 16:11: Glucometer 159H 04/28/20 21:07: Glucometer 110 04/29/20 04:13: White Blood Count 12.3H, Red Blood Count 3.63L, Hemoglobin 10.0L, Hematocrit 33L , Mean Corpuscular Volume 90, Mean Corpuscular Hemoglobin 28, Mean Corpuscular Hemoglobin Concent 31L, Red Cell Distribution Width 17.4H, Platelet Count 302, Mean Platelet Volume 10.0, Immature Granulocyte % (Auto) 1, Neutrophils (%) (Auto) 81H, Lymphocytes (%) (Auto) 8L, Monocytes (%) (Auto) 9, Eosinophils (%) (Auto) 2, Basophils (%) (Auto) 0, Neutrophils # (Auto) 10.0H, Lymphocytes # (Auto) 1.0, Monocytes # (Auto) 1.1H, Eosinophils # (Auto) 0.2, Basophils # (Auto) 0.0, Immature Granulocyte # (Auto) 0.1, Sodium Level 138, Potassium Level 4.1, Chloride Level 105, Carbon Dioxide Level 24, Anion Gap 9, Blood Urea Nitrogen 23H, Creatinine 1.10, Estimat Glomerular Filtration Rate 48, BUN/Creatinine Ratio 21, Glucose Level 121H, Calcium Level 8.0L, Phosphorus Level 3.1, Magnesium Level 2.0 04/29/20 07:44: Glucometer 116H 04/29/20 11:36: Glucometer 120H 04/29/20 11:45: Vancomycin Level Trough 17.8 04/29/20 16:38: Glucometer 152H 04/29/20 20:22: Glucometer 190H 04/30/20 04:34: White Blood Count 11.1H, Red Blood Count 3.60L, Hemoglobin 9.9L, Hematocrit 32L, Mean Corpuscular Volume 90, Mean Corpuscular Hemoglobin 28, Mean Corpuscular Hemoglobin Concent 31L, Red Cell Distribution Width 17.2H, Platelet Count 306, Mean Platelet Volume 9.5, Immature Granulocyte % (Auto) 1, Neutrophils (%) (Auto ) 79H, Lymphocytes (%) (Auto) 9L, Monocytes (%) (Auto) 10, Eosinophils (%) (Auto) 2, Basophils (%) (Auto) 0, Neutrophils # (Auto) 8.7H, Lymphocytes # (Auto) 0.9L, Monocytes # (Auto) 1.1H, Eosinophils # (Auto) 0.2, Basophils # (Auto) 0.0, Immature Granulocyte # (Auto) 0.1, Sodium Level 140, Potassium Level 4.1, Chloride Level 107, Carbon Dioxide Level 25, Anion Gap 8, Blood Urea Nitrogen 21H, Creatinine 1.05, Estimat Glomerular Filtration Rate 51, BUN/Creatinine Ratio 20, Glucose Level 153H, Calcium Level 8.0L, Corrected Calcium 8.8, Magnesium Level 2.0, Total Bilirubin 0.7, Aspartate Amino Transf (AST/SGOT) 13, Alanine Aminotransferase (ALT/SGPT) 9, Alkaline Phosphatase 78, Total Protein 6.3L, Albumin 3.0L 04/30/20 10:17: Glucometer 154H Microbiology 04/27/20 MRSA Screen - Final, Complete MRSA not isolated Pending Labs Microbiology Date/Time Source Procedure Growth Status 04/27/20 21:37 Nasal MRSA Screen - Final MRSA not isolated Complete Laboratory Tests 04/27/20 20:42: Lab Scanned Report LAB Reports 04/27/20 21:37: White Blood Count 23.4, Red Blood Count 4.05, Hemoglobin 11.3, Hematocrit 36, Mean Corpuscular Volume 88, Mean Corpuscular Hemoglobin 28, Mean Corpuscular Hemoglobin Concent 32, Red Cell Distribution Width 17.2, Platelet Count 301, Mean Platelet Volume 9.5, Immature Granulocyte % (Auto) 1, Neutrophils (%) (Au to) 92, Lymphocytes (%) (Auto) 2, Monocytes (%) (Auto) 5, Eosinophils (%) (Auto) 0, Basophils (%) (Auto) 0, Neutrophils # (Auto) 21.5, Lymphocytes # (Auto) 0.5, Monocytes # (Auto) 1.2, Eosinophils # (Auto) 0.0, Basophils # (Auto) 0.0, Immature Granulocyte # (Auto) 0.2, Neutrophils % (Manual) 83, Lymphocytes % (Manual) 2, Monocytes % (Manual) 2, Eosinophils % (Manual) 0, Basophils % (Manual) 0, Band Neutrophils 13, Toxic Granulation 1+, Hypochromasia SLIGHT, Anisocytosis SLIGHT, Rouleau SLIGHT, Sodium Level 138, Potassium Level 4.4, Chloride Level 101, Carbon Dioxide Level 24, Anion Gap 13, Blood Urea Nitrogen 21, Creatinine 1.24, Estimat Glomerular Filtration Rate 42, BUN/Creatinine Ratio 17, Glucose Level 134, Lactic Acid Level 0.97, Calcium Level 9.8, Corrected Calcium 10.4, Total Bilirubin 1.0, Aspartate Amino Transf (AST/SGOT) 12, Alanine Aminotransferase (ALT/SGPT) 7, Alkaline Phosphatase 76, B-Type Natriuretic Peptide 206.0, Total Protein 6.6, Albumin 3.3, Procalcitonin 0.32 04/28/20 03:05: White Blood Count 23.6, Red Blood Count 3.74, Hemoglobin 10.5, Hematocrit 33, Mean Corpuscular Volume 89, Mean Corpuscular Hemoglobin 28, Mean Corpuscular Hemoglobin Concent 32, Red Cell Distribution Width 17.3, Platelet Count 288, Mean Platelet Volume 9.4, Immature Granulocyte % (Auto) 1, Neutrophils (%) (Auto) 91, Lymphocytes (%) (Auto) 4, Monocytes (%) (Auto) 4, Eosinophils (%) (Auto) 0, Basophils (%) (Auto) 0, Neutrophils # (Auto) 21.3, Lymphocytes # (Auto) 1.0, Monocytes # (Auto) 1.0, Eosinophils # (Auto) 0.0, Basophils # (Auto) 0.1, Immature Granulocyte # (Auto) 0.3, Sodium Level 139, Potassium Level 4.4, Chloride Level 105, Carbon Dioxide Level 23, Anion Gap 11, Blood Urea Nitrogen 23, Creatinine 1.25, Estimat Glomerular Filtration Rate 42, BUN/Creatinine Ratio 18, Glucose Level 135, Calcium Level 8.5, Corrected Calcium 9.2, Total Bilirubin 1.1, Aspartate Amino Transf (AST/SGOT) 15, Alanine Aminotransferase (ALT/SGPT) 6, Alkaline Phosphatase 69, Total Protein 6.2, Albumin 3.1, Phosphorus Level 4.3, Magnesium Level 1.7 04/28/20 10:52: Glucometer 145 04/28/20 16:11: Glucometer 159 04/28/20 21:07: Glucometer 110 04/29/20 04:13: White Blood Count 12.3, Red Blood Count 3.63, Hemoglobin 10.0, Hematocrit 33, Mean Corpuscular Volume 90, Mean Corpuscular Hemoglobin 28, Mean Corpuscular Hemoglobin Concent 31, Red Cell Distribution Width 17.4, Platelet Count 302, Mean Platelet Volume 10.0, Immature Granulocyte % (Auto) 1, Neutrophils (%) (Auto) 81, Lymphocytes (%) (Auto) 8, Monocytes (%) (Auto) 9, Eosinophils (%) (Auto) 2, Basophils (%) (Auto) 0, Neutrophils # (Auto) 10.0, Lymphocytes # (Auto) 1.0, Monocytes # (Auto) 1.1, Eosinophils # (Auto) 0.2, Basophils # (Auto) 0.0, Immature Granulocyte # (Auto) 0.1, Sodium Level 138, Potassium Level 4.1, Chloride Level 105, Carbon Dioxide Level 24, Anion Gap 9, Blood Urea Nitrogen 23, Creatinine 1.10, Estimat Glomerular Filtration Rate 48, BUN/Creatinine Ratio 21, Glucose Level 121, Calcium Level 8.0, Phosphorus Level 3.1, Magnesium Level 2.0 04/29/20 07:44: Glucometer 116 04/29/20 11:36: Glucometer 120 04/29/20 11:45: Vancomycin Level Trough 17.8 04/29/20 16:38: Glucometer 152 04/29/20 20:22: Glucometer 190 04/30/20 04:34: White Blood Count 11.1, Red Blood Count 3.60, Hemoglobin 9.9, Hematocrit 32, Mean Corpuscular Volume 90, Mean Corpuscular Hemoglobin 28, Mean Corpuscular Hemoglobin Concent 31, Red Cell Distribution Width 17.2, Platelet Count 306, Mean Platelet Volume 9.5, Immature Granulocyte % (Auto) 1, Neutrophils (%) (Auto) 79, Lymphocytes (%) (Auto) 9, Monocytes (%) (Auto) 10, Eosinophils (%) (Auto) 2, Basophils (%) (Auto) 0, Neutrophils # (Auto) 8.7, Lymphocytes # (Auto) 0.9, Monocytes # (Auto) 1.1, Eosinophils # (Auto) 0.2, Basophils # (Auto) 0.0, Immature Granulocyte # (Auto) 0.1, Sodium Level 140, Potassium Level 4.1, Chloride Level 107, Carbon Dioxide Level 25, Anion Gap 8, Blood Urea Nitrogen 21, Creatinine 1.05, Estimat Glomerular Filtration Rate 51, BUN/Creatinine Ratio 20, Glucose Level 153, Calcium Level 8.0, Corrected Calcium 8.8, Magnesium Level 2.0, Total Bilirubin 0.7, Aspartate Amino Transf (AST/SGOT) 13, Alanine Aminotransferase (ALT/SGPT) 9, Alkaline Phosphatase 78, Total Protein 6.3, Albumin 3.0 04/30/20 10:17: Glucometer 154 Discharge Home Medications: Active Scripts Active Lasix (Furosemide) 20 Mg Tablet 20 Mg PO Q48H Zyvox (Linezolid) 600 Mg Tablet 600 Mg PO BID Cefdinir 300 Mg Capsule 300 Mg PO BID Reported [Calcium + Vit C] 1 Ea PO DAILY Glipizide 10 Mg Tablet 5 Mg PO 1200,200 TAKES OF A 5MG Vitamin D3 (Cholecalciferol (Vitamin D3)) 50 Mcg Tablet 50 Mcg PO DAILY Pravastatin Sodium 20 Mg Tablet 20 Mg PO HS Losartan Potassium 100 Mg Tablet 100 Mg PO 1200 Pioglitazone HCl 15 Mg Tablet 15 Mg PO 1200 Levemir Flextouch (Insulin Detemir) 100 Unit/1 Ml Insuln.pen 25 Unit SC DAILY Victoza 3-Robson (Liraglutide) 0.6 Mg/0.1 Ml Pen.injctr 1.8 Mg SC DAILY Instructions to patient/family Please see electronic discharge instructions given to patient. MICHAELA ELLISON DO Apr 30, 2020 10:15
--- NOTE | 2020-04-30 10:26 | Progress Note ---
SHAHAB KHAN MED STUDENT 04/30/20 1026: Progress Note Patient presented to [place] ED on 04/28/20 with SOA. She reported a history of chills, SOA, and cough for 3 days along with incontinence and decreased appetite. Patient's history notable for morbid obesity, HTN, T2DM. Patient had an O2 sat of 89% on RA, WBC 18, Hg 12.9, Hct 41.4, platelets 374. Na 141, K 5.1, Cl 103, CO2 22, anion gap 21, BUN 19, Cr 1.07, glucose 97. ABG pH 7.49, pCO2 35, pO2 51, HCO3 26. CRP 11.14. Lactic acid 19.6. Testing for mycoplasma pneumonia came back negative. Testing for UTI was positive with 4+ bacteria and 1+ leukocy te esterase. Patient was transferred to [facility] and admitted for pneumonia, UTI, and possible sepsis. Vancomycin and Cefepime were started and patient was placed on oxygen. Catheter was placed for her urinary incontinence and morbid obesity. Lovenox was also initiated for DVT prophylaxis. Patient also has been receiving wound care for a diabetic-associated wound and they were consulted to continue care during her stay. Insulin started for elevated blood glucose levels. Patient's SOA, cough, chills, and lab values gradually improved over her stay and she expressed wishes to return home on 04/30/20. Patient is unable to ambulate or fully care for herself, but she states she has competent care from her at home. Patient's BNP was noted to be elevated, so a previous echo was referenced and a new echo ordered prior to DC. Patient also was evaluated for home O2 for her SOA secondary to her pneumonia and probable CHF. RENAE ELLISON DO 05/01/20 0545: Supervisory-Addendum Brief Verification & Attestation Participated in pt care: history, MDM, physical Personally performed: exam, history, MDM, supervision of care Care discussed with: Medical Student Procedures: n/a Results interpretation: Verified all documentation Verification and Attestation of Medical Student E/M Service A medical student performed and documented this service in my presence. I rev iewed and verified all information documented by the medical student and made modifications to such information, when appropriate. I personally performed the physical exam and medical decision making. Renae Ellison, May 01, 2020,05:44 SHAHAB KHAN MED STUDENT Apr 30, 2020 10:26 RENAE ELLISON DO May 01, 2020 05:45
--- NOTE | 2020-04-30 10:36 | NUR ---
pt was taken off O2 and dropped O2 sat below 88% in a matter of minutes. pt was placed back on 3 LN at this time with good saturation. Addendum: 04/30/20 at 1036 by RADHA ROMERO RT Amended: Links added.
[2020-04-30] MEDS ORDERED: glipiZIDE 5 MG (GLUCOTROL) TAB PO SCH (10:45)
--- NOTE | 2020-04-30 10:52 | Physical Therapy Evaluation ---
PT Evaluation-General Medical Diagnosis Admission Date Apr 27, 2020 at 20:42 Medical Diagnosis: pneumonia/sepsis Onset Date: Apr 27, 2020 Therapy Diagnosis Therapy Diagnosis: debility Height/Weight Height (Feet): 5 Height (Inches): 3.00 Weight (Pounds): 308 Precautions Precautions/Isolations: Fall Prevention, Standard Precautions Weight Bear Status Right Lower Extremity: Right Non Weight Bearing Left Lower Extremity: Left Non Weight Bearing Referral Physician: Néstor Reason for Referral: Evaluation/Treatment Medical History Pertinent Medical History: DM, HTN, Rheumatoid Arthritis Additional Medical History morbid obesity Current History TFR from [facility] [place] secondary to SOA Reviewed History: Yes Social History Home: Single Level Current Living Status: Other Family Entry Into Home: Ramp Prior Prior Level of Function SCALE: Activities may be completed with or without assistive devices. 7-Yqawrvlqlq-zxryvmt completes the activity by him/herself with no assistance from a helper. 5-Set-up or Clean-up Assistance-helper sets up or cleans up; patient completes activity. May assists only prior to or following the activity. 4-Supervision or Touching Assistance-helper provides verbal cues and/or touching/steadying and/or contact guard assistance as patient completes activity. Assistance may be provided throughout the activity or intermittently. 3-Partial/Moderate Assistance-helper does LESS THAN HALF the effort. May lifts, holds or supports trunk or limbs, but provides less than half the effort. 2-Substantial/Maximal Assistance-helper does MORE THAN HALF the effort. May lifts or holds trunk or limbs and provides more than half the effort. 5-Etetnxond-axlawx does ALL the effort. Patient does none of the effort to complete the activity. Or, the assistance of 2 or more helpers is required for the patient to complete the activity. If activity was not attempted, code reason: 7-Patient Refused. 9-Not Applicable-not attempted and the patient did not perform the activity before the current illness, exacerbation or injury. 10-Not Attempted due to Environmental Limitations-(lack of equipment, weather restraints, etc.). 88-Not Attempted due to Medical Conditions or Safety Concerns. Bed Mobility: 2 Transfers (B,C,W/C): 2 Gait: 5 Stairs: 9 Wheelchair Mobility: 5 Indoor Mobility (Ambulation): Independent Stairs: Not Applicalbe Prior Devices Use: Manual wheelchair, Walker PT Evaluation-Current Subjective Patient agrees to PT. Objective Patient Orientation: Normal For Age Attachments: Oxygen, Mendez Catheter, IV ROM/Strength ROM Lower Extremities limited due to size Strength Lower Extremities 3/5 grossly bilateral LE Integumentary/Posture Integumentary refer to nursing notes Bladder Incontinence: Mendez Cath Posture WFL Neuromuscular (Tone, Coordination, Reflexes) grossly intact Sensory Vision: Wears Glasses Hearing: Functional Transfers Lying to Sitting/Side of Bed(Q: 2 (patient wanted to sit EOB) Balance Sitting Static: Normal Sitting Dynamic: Fair Assessment/Needs 75 y.o. female, will benefit from skilled PT to address functional strength and mobility. This PT recommends home health PT upon dismissal to home. Rehab Potential: Fair PT Longterm Goals Contract Attorney Goals PT Contract Attorney Goals Time Frame: May 04, 2020 Sit to Lying (QC): 3 Lying-Sitting on Side/Bed(QC): 3 Sit to Stand (QC): 4 PT Plan Problem List Problem List: Activity Tolerance, Functional Strength, Balance, Transfer, Bed Mobility, Other (morbid obesity) Treatment/Plan Treatment Plan: Continue Plan of Care Treatment Plan: Bed Mobility, Education, Functional Activity Vj, Functional Strength, Safety, Therapeutic Exercise, Transfers Treatment Duration: May 04, 2020 Frequency: 5 times per week Estimated Hrs Per Day: .25 hour per day Patient and/or Family Agrees t: Yes Time/GCodes Time In: 845 Time Out: 905 Total Billed Treatment Time: 20 Total Billed Treatment 1 visit EVModC 20 min KAREN HUERTAS PT Apr 30, 2020 10:52
--- NOTE | 2020-04-30 11:31 | Consultation-Cardiology ---
HPI-Cardiology Cardiology Consultation: Date of Consultation 04/30/20 Time Seen by a Provider: 11:15 Date of Admission 04-29-20 Attending Physician Michaela Ellison DO Admitting Physician Veronica Winters MD Consulting Physician Fifi Moya MD HPI: Chief Complaint: Sepsis Ms. Yang is a 75 yr old female seen in 418 [place] [facility] [place] She reports starting on Thursday night she began to have shaking chills, she took Tylenol which did relieve them, however she had another episode on Thursday, which they Tylenol did not provide relief at that time. She denies any c/o CP, SOB, palpitations. She uses a w/c. She states she had abdominal surgery in Dec 2019 and has been undergoing wound care treatment d/t wound dehiscence. She has chronic bilat LE swelling. Reports chronic redness to left lower leg. States she is going home this afternoon. Review of Systems-Cardiology Review of Systems Constitutional: chills, fever Eyes: No vision change Ears/Nose/Throat: No recent hearing loss Respiratory: As described under HPI Cardiovascular: As described under HPI Gastrointestinal: No diarrhea, No nausea, No vomiting Genitourinary: No dysuria; frequency Musculoskeletal: joint pain (chronic) Skin: other (wound to post surgical abd surgery in Dec 2019); No rash on exposed areas, No ulcerations on exposed areas Psychiatric/Neurological: No anxiety, No depression, No focal weakness, No syncope Hematologic: No bleeding abnormalities [id number] Hx Patient Social History Marrital Status: Employed/Student: retired Smoking Status: Never a Smoker Have you traveled recently?: No Alcohol Use?: No Pt feels they are or have been: No Past Medical History PMH As described under Assessment. Family Medical History Family Medical History: She reports her mother had CHF Allergies and Home Medications Allergies Coded Allergies: acetaminophen (Verified Allergy, Severe, Anaphylaxis, 04/28/20) dextromethorphan (Verified Allergy, Severe, Anaphylaxis, 04/28/20) doxylamine (Verified Allergy, Severe, Anaphylaxis, 04/28/20) pseudoephedrine (Verified Allergy, Severe, Anaphylaxis, 04/28/20) Sulfa (Sulfonamide Antibiotics) (Verified Allergy, Unknown, 04/28/20) diphenhydramine (Verified Allergy, Unknown, Hives, 04/28/20) sulfite (Verified Allergy, Unknown, 04/28/20) Home Medications Cefdinir 300 Mg Capsule, 300 MG PO BID Prescribed by: MICHAELA ELLISON on 04/30/20 1013 Cholecalciferol (Vitamin D3) 50 Mcg Tablet, 50 MCG PO DAILY, (Reported) Furosemide 20 Mg Tablet, 20 MG PO Q48H Prescribed by: MICHAELA ELLISON on 04/30/20 1013 Glipizide 10 Mg Tablet, 5 MG PO 1200,200, (Reported) TAKES OF A 5MG Insulin Detemir 100 Unit/1 Ml Insuln.pen, 25 UNIT SC DAILY, (Reported) Linezolid 600 Mg Tablet, 600 MG PO BID Prescribed by: MICHAELA ELLISON on 04/30/20 1013 Liraglutide 0.6 Mg/0.1 Ml Pen.injctr, 1.8 MG SC DAILY, (Reported) Losartan Potassium 100 Mg Tablet, 100 MG PO 1200, (Reported) Pioglitazone HCl 15 Mg Tablet, 15 MG PO 1200, (Reported) Pravastatin Sodium 20 Mg Tablet, 20 MG PO HS, (Reported) [Calcium + Vit C] , 1 EA PO DAILY, (Reported) Physical Exam-Cardiology Physical Exam Vital Signs/I&O 04/29/20 04/30/20 04/30/20 04/30/20 23:29 02:09 04:09 06:04 Temp 36.6 Pulse 71 80 Resp 21 24 B/P (MAP) 137/64 (88) 168/73 (104) Pulse Ox 96 94 97 94 O2 Delivery Nasal Cannula Nasal Cannula Nasal Cannula Nasal Cannula O2 Flow Rate 3.00 3.00 3.00 3.00 04/30/20 04/30/20 04/30/20 07:42 09:00 10:33 Temp 36.8 Pulse 79 Resp 20 B/P (MAP) 141/74 (96) Pulse Ox 95 87 O2 Delivery Nasal Cannula Nasal Cannula O2 Flow Rate 3.00 3.00 3.00 04/30/20 00:00 Intake Total 2175 ml Output Total 1600 ml Balance 575 ml Capillary Refill : Less Than 3 Seconds Constitutional: well-developed, well-nourished HEENT: PERRL, hearing is well preserved, oral hygience is good Neck: No carotid bruit; carotid pulses are 2 + bilaterally Respiratory: No accessory muscle use, No respiratory distress; chest expansion is symmetric, chest is bilaterally symmetric, lungs clear to auscultation Cardiovascular: regular rate-rhythm; No JVD; S1 and S2 Gastrointestinal: No tender; soft, round, audible bowel sounds Extremities: other (bilat non-pitting edema) Neurologic/Psychiatric: grossly intact (moves all extremities) Skin: other (abdominal wound; dressing not removed. Redness to LLE - states chronic) Data Review Labs Laboratory Tests 04/29/20 11:36: Glucometer 120H 04/29/20 11:45: Vancomycin Level Trough 17.8 04/29/20 16:38: Glucometer 152H 04/29/20 20:22: Glucometer 190H 04/30/20 04:34: White Blood Count 11.1H, Red Blood Count 3.60L, Hemoglobin 9.9L, Hematocrit 32L, Mean Corpuscular Volume 90, Mean Corpuscular Hemoglobin 28, Mean Corpuscular Hemoglobin Concent 31L, Red Cell Distribution Width 17.2H, Platelet Count 306, Mean Platelet Volume 9.5, Immature Granulocyte % (Auto) 1, Neutrophils (%) (Auto) 79H, Lymphocytes (%) (Auto) 9L, Monocytes (%) (Auto) 10, Eosinophils (%) (Auto) 2, Basophils (%) (Auto) 0, Neutrophils # (Auto) 8.7H, Lymphocytes # (Auto) 0.9L, Monocytes # (Auto) 1.1H, Eosinophils # (Auto) 0.2, Basophils # (Auto) 0.0, Immature Granulocyte # (Auto) 0.1, Sodium Level 140, Potassium Level 4.1, Chloride Level 107, Carbon Dioxide Level 25, Anion Gap 8, Blood Urea Nitrogen 21H, Creatinine 1.05, Estimat Glomerular Filtration Rate 51, BUN/Creatinine Ratio 20, Glucose Level 153H, Calcium Level 8.0L, Corrected Calcium 8.8, Magnesium Level 2.0, Total Bilirubin 0.7, Aspartate Amino Transf (AST/SGOT) 13, Alanine Aminotransferase (ALT/SGPT) 9, Alkaline Phosphatase 78, Total Protein 6.3L, Albumin 3.0L 04/30/20 10:17: Glucometer 154H Microbiology 04/27/20 MRSA Screen - Final, Complete MRSA not isolated Laboratory Tests 04/29/20 04:13 04/30/20 04:34 Radiology NAME: ARMANDO YANG [facility] REC#: [id number] PT STATUS: ADM IN : 1945 PHYSICIAN: MICHAELA ELLISON DO ADMIT DATE: 04/27/20/ICU Signed Date of Exam:04/28/20 CHEST 1 VIEW, AP/PA ONLY Indication: Sepsis, urinary tract infection and pneumonia Single AP view of the chest is obtained. Comparison is made to study one day earlier. There has been mild increase in pulmonary venous congestion and probable mild bilateral perihilar edema. Heart size at the upper limits of normal. Right jugular central venous catheter is in stable position with tip reaching the superior vena cava/right atrial junction. No pneumothorax is seen. IMPRESSION: Increasing pulmonary venous congestion and possible mild perihilar pulmonary edema. Dictated by: Dictated on workstation # [id number] Dict: 04/28/20 0711 Trans: 04/28/20 0936 [facility] [id number] Interpreted by: SKINNY RAGSDALE MD Electronically signed by: SKINNY RAGSDALE MD 04/28/20 0936 A/P-Cardiology Assessment/Admission Diagnosis UTI with sepsis - management per medical services Pneumonia - management per medical services Echocardiogram of Jan 2020 from [facility] [place] LVEF 50-55%. Mild MR. HTN HLD Obesity S/P abdominal surgery in Dec 2019 - resulting in dehiscence - following with wound care Discussion and Recomendations UTI with sepsis - management per medical services Received echocardiogram from [facility] done in Jan 2020, she does not wish to have another echocardiogram Continue current medication regimen She wishes to go home today - d/c orders already in place per medical services Advise out pt f/u VICKIE BEARDEN Apr 30, 2020 11:31
[2020-04-30] MEDS ORDERED: ACETAMINOPHEN 325 MG TABLET PO PRN (12:00)
[2020-04-30] MEDS ORDERED: PIOGLITAZONE 30MG (ACTOS) TAB PO SCH (12:00)
[2020-04-30] MEDS ORDERED: LOSARTAN 100 MG (COZAAR) TABLET PO SCH (12:00)
--- NOTE | 2020-04-30 12:05 | NUR ---
DISCHARGE PLANNING: Patient to be discharge today to home with new oxygen needs and an order for HHC. She is using [facility] as she has family who works for them and she will have [facility] to resume after discharge. I have spoken to [facility] and to [facility]. SHe has her w/c in the room and her has a w/c accessible van that he will pick her up in. She will be ready for discharge after her ECHO is completed. NO other needs voiced at this time.
[2020-04-30 12:12] VITALS: BP 147/75
[2020-04-30 14:30] VITALS: BP 147/75
--- NOTE | 2020-04-30 15:50 | NUR ---
"RD ASSESSMENT PMHx: hypercholesterolemia; HTN; RA; DM; PT INTERACTION: Pt was awake and pleasant during nutrition consult for MST score. Pt states current appetite is good. Note avg PO intake 71% x2d, per chart review. Pt states following a regular diet at home, and has no issues with chewing/swallowing food. Pt states some recent issues with constipation, and that her last BM was 04/26. Note pt currently on bowel regimen of senna BID, per chart review. Pt states current DM management is good, and that her last HbA1c was 6.4 (unknown date). Pt states no recent wt changes. Note recent 17# wt gain x2mon, per chart review. Upon visual assessment, pt appears very well nourished with no visible signs of muscle/fat wasting and a BMI of 68.6 (obese class III for age). Given wt hx, PO intake, and visual assessment, pt does not meet criteria for malnutrition per ASPEN guidelines. Est. kcal needs: 7276-8570 kcal | 25-30 kcal/kg IBW, based on IBW of 52.3 kg (115#) Est. Pro needs: 42-52 g Pro | 0.8-1.0 g Pro/kg IBW PES STATEMENT: Inadequate oral intake (NI-2.1) related to loss of appetite and constipation, as evidenced by pt interview, and avg PO intake 71% x2d. INTERVENTION: Continue with current diet order of CHO 60g/m 0snack diet. Discussed and provided diet education on DM management. Answered questions about common foods in pt's diet and their relationship to DM management. Pt verbalized understanding of information provided. Will continue to follow and reassess as pt needs, intake, and status change. Juliane RUFFIN, MS RD LD [phone] cell"
--- NOTE | 2020-04-30 16:04 | Consultation-Cardiology ---
HPI-Cardiology Cardiology Consultation: Date of Consultation 04/30/20 Time Seen by a Provider: 13:30 Date of Admission Attending Physician Renae Ellison DO Admitting Physician Veronica Winters MD Consulting Physician ROSALINE HAQ MD, MA, FACP, FACC, [facility] [place], CCD[facility] HPI: Chief Complaint: Reason for consultation: Shortness of breath HPI Ms. Kulkarni is a 75 yr old female seen in 418 from [facility] [place]. She reports starting on Thursday night she began to have shaking chills, she took Tylenol which did relieve them, however she had another episode on Thursday, which they Tylenol did not provide relief at that time. She thinks she may have some shortness of breath then, none at this time. She denies any c/o CP or palpitations. She uses a w/c. She states she had abdominal surgery in Dec 2019 and has been undergoing wound care treatment d/t wound dehiscence. She has chronic bilat LE swelling. Reports chronic redness to left lower leg. States she is going home this afternoon. Review of Systems-Cardiology Review of Systems Constitutional: chills, fever Eyes: No vision change Ears/Nose/Throat: No recent hearing loss Respiratory: As described under HPI Cardiovascular: As described under HPI Gastrointestinal: No diarrhea, No nausea, No vomiting Genitourinary: No dysuria; frequency Musculoskeletal: joint pain (chronic) Skin: other (wound to post surgical abd surgery in Dec 2019); No rash on exposed areas, No ulcerations on exposed areas Psychiatric/Neurological: No anxiety, No depression, No focal weakness, No syncope Hematologic: No bleeding abnormalities [id number] Hx Patient Social History Marrital Status: Employed/Student: retired Smoking Status: Never a Smoker Have you traveled recently?: No Alcohol Use?: No Pt feels they are or have been: No Past Medical History PMH As described under Assessment. Family Medical History Family Medical History: She reports her mother had CHF Allergies and Home Medications Allergies Coded Allergies: acetaminophen (Verified Allergy, Severe, Anaphylaxis, 04/28/20) dextromethorphan (Verified Allergy, Severe, Anaphylaxis, 04/28/20) doxylamine (Verified Allergy, Severe, Anaphylaxis, 04/28/20) pseudoephedrine (Verified Allergy, Severe, Anaphylaxis, 04/28/20) Sulfa (Sulfonamide Antibiotics) (Verified Allergy, Unknown, 04/28/20) diphenhydramine (Verified Allergy, Unknown, Hives, 04/28/20) sulfite (Verified Allergy, Unknown, 04/28/20) Home Medications Cefdinir 300 Mg Capsule, 300 MG PO BID Prescribed by: RENAE ELLISON on 04/30/20 1013 Cholecalciferol (Vitamin D3) 50 Mcg Tablet, 50 MCG PO DAILY, (Reported) Furosemide 20 Mg Tablet, 20 MG PO Q48H Prescribed by: RENAE ELLISON on 04/30/20 1013 Glipizide 10 Mg Tablet, 5 MG PO 1200,200, (Reported) TAKES OF A 5MG Insulin Detemir 100 Unit/1 Ml Insuln.pen, 25 UNIT SC DAILY, (Reported) Linezolid 600 Mg Tablet, 600 MG PO BID Prescribed by: RENAE ELLISON on 04/30/20 1013 Liraglutide 0.6 Mg/0.1 Ml Pen.injctr, 1.8 MG SC DAILY, (Reported) Losartan Potassium 100 Mg Tablet, 100 MG PO 1200, (Reported) Pioglitazone HCl 15 Mg Tablet, 15 MG PO 1200, (Reported) Pravastatin Sodium 20 Mg Tablet, 20 MG PO HS, (Reported) [Calcium + Vit C] , 1 EA PO DAILY, (Reported) Patient Home Medication List Home Medication List Reviewed: Yes Physical Exam-Cardiology Physical Exam Vital Signs/I&O 04/30/20 04/30/20 04/30/20 04/30/20 04:09 06:04 07:42 09:00 Temp 36.8 Pulse 80 79 Resp 24 20 B/P (MAP) 168/73 (104) 141/74 (96) Pulse Ox 97 94 95 O2 Delivery Nasal Cannula Nasal Cannula Nasal Cannula Nasal Cannula O2 Flow Rate 3.00 3.00 3.00 3.00 04/30/20 04/30/20 04/30/20 10:33 12:12 14:30 Temp 36.4 36.4 Pulse 73 73 Resp 20 20 B/P (MAP) 147/75 (99) 147/75 Pulse Ox 87 96 96 O2 Delivery Nasal Cannula Nasal Cannula O2 Flow Rate 3.00 2.00 2.00 04/30/20 00:00 Intake Total 2175 ml Output Total 1600 ml Balance 575 ml Capillary Refill : Less Than 3 Seconds Constitutional: well-developed, well-nourished HEENT: PERRL, hearing is well preserved, oral hygience is good Neck: No carotid bruit; carotid pulses are 2 + bilaterally Respiratory: No accessory muscle use, No respiratory distress; chest expansion is symmetric, chest is bilaterally symmetric, lungs clear to auscultation Cardiovascular: regular rate-rhythm; No JVD; S1 and S2 Gastrointestinal: No tender; soft, round, audible bowel sounds Extremities: other (bilat non-pitting edema) Neurologic/Psychiatric: grossly intact (moves all extremities) Skin: other (abdominal wound; dressing not removed. Redness to LLE - states chronic) Data Review Labs Laboratory Tests 04/29/20 16:38: Glucometer 152H 04/29/20 20:22: Glucometer 190H 04/30/20 04:34: White Blood Count 11.1H, Red Blood Count 3.60L, Hemoglobin 9.9L, Hematocrit 32L, Mean Corpuscular Volume 90, Mean Corpuscular Hemoglobin 28, Mean Corpuscular Hemoglobin Concent 31L, Red Cell Distribution Width 17.2H, Platelet Count 306, Mean Platelet Volume 9.5, Immature Granulocyte % (Auto) 1, Neutrophils (%) (Auto) 79H, Lymphocytes (%) (Auto) 9L, Monocytes (%) (Auto) 10, Eosinophils (%) (Auto) 2, Basophils (%) (Auto) 0, Neutrophils # (Auto) 8.7H, Lymphocytes # (Auto) 0.9L, Monocytes # (Auto) 1.1H, Eosinophils # (Auto) 0.2, Basophils # (Auto) 0.0, Immature Granulocyte # (Auto) 0.1, Sodium Level 140, Potassium Level 4.1, Chloride Level 107, Carbon Dioxide Level 25, Anion Gap 8, Blood Urea Nitrogen 21H, Creatinine 1.05, Estimat Glomerular Filtration Rate 51, BUN/Creatinine Ratio 20, Glucose Level 153H, Calcium Level 8.0L, Corrected Calcium 8.8, Magnesium Level 2.0, Total Bilirubin 0.7, Aspartate Amino Transf (AST/SGOT) 13, Alanine Aminotransferase (ALT/SGPT) 9, Alkaline Phosphatase 78, Total Protein 6.3L, Albumin 3.0L 04/30/20 10:17: Glucometer 154H Microbiology 04/27/20 MRSA Screen - Final, Complete MRSA not isolated A/P-Cardiology Assessment/Admission Diagnosis UTI with sepsis - management per medical services Pneumonia - management per medical services Echocardiogram of Jan 2020 from [facility] [place] showed LVEF 50-55%. Mild MR. HTN HLD Obesity S/P abdominal surgery in Dec 2019 - resulting in dehiscence - following with wound care Discussion and Recomendations UTI with sepsis - management per medical services Received echocardiogram from [facility] [place] done in Jan 2020, she does not wish to have another echocardiogram Continue current medication regimen Cardiac status appears stable at this time Advise out pt f/u ROSALINE HAQ MD FACP FACC CCDS Apr 30, 2020 16:04
[2020-04-30] MEDS ORDERED: SIMvastatin 10 MG (ZOCOR) TAB PO SCH (21:00)
[2020-05-01] MEDS ORDERED: VIT C PO SCH (09:00)
[2020-05-01] MEDS ORDERED: CALCIUM PO SCH (09:00)
[2020-05-01] MEDS ORDERED: VITAMIN D3 25 MCG (1,000 UNITS) TABLET PO SCH (09:00)
[2020-05-01] MEDS ORDERED: NON-FORMULARY MEDICATION 1 EA EA (Liraglutide (Victoza 3-Pak) 1.8 MG) SC SCH (09:00)
== END 2020-04-30 14:30 | disposition home health service (06) | DRG 871 ==
LOC: ICU 20:42 → 4TH 04-28 11:47
PROVIDERS: ADMIT Internal Medicine; ATTEND Internal Medicine
DX: A41.9 Sepsis, unspecified organism (principal); J18.9 Pneumonia, unspecified organism; J96.01 Acute respiratory failure with hypoxia; N39.0 Urinary tract infection, site not specified; Z68.44 Body mass index [BMI] 60.0-69.9, adult; T81.31XD Disruption of external operation (surgical) wound, not elsewhere classified, subsequent encounter; R32 Unspecified urinary incontinence; I10 Essential (primary) hypertension; Z20.822 Contact with and (suspected) exposure to COVID-19; E66.01 Morbid (severe) obesity due to excess calories; E11.9 Type 2 diabetes mellitus without complications; M06.9 Rheumatoid arthritis, unspecified; Z88.2 Allergy status to sulfonamides; E78.00 Pure hypercholesterolemia, unspecified; Z79.4 Long term (current) use of insulin
CPT/HCPCS: 36415; 71045; 80048; 80053; 80202; 82962; 83605; 83735; 83880; 84100; 84145; 85007; 85025; 85027; 87081; 87635; 94640; 94760; 94761

== ENCOUNTER 2021-05-21 11:52 | Outpatient (RCR) | payer MEDICARE, OTHER ==
[~2021-05-21 11:52] MED LIST: ASCORBIC ACID; CALCIUM; CALCIUM PO; CEFD300C3 PO; CHOL200014 PO; CHOL500049 PO; FURO-125 PO; GLIP10TA13 PO; GLIP5TAB13; INSU100I29 SC; LINE600T12 PO; LIRA0.6P3 SC; LOSA100T57 PO; PIOG15TA67 PO; PRAV20TA3 PO; VIT C PO
[2021-05-21 12:48] LABS: ABSOLUTE RETIC # 88 10e9/uL (24-90); BASOPHILS # (AUTO) 0.1 10^3/uL (0.0-0.1); BASOPHILS % (AUTO) 1 % (0-10); EOSINOPHILS # (AUTO) 0.4 10^3/uL (0.0-0.3); EOSINOPHILS % (AUTO) 4 % (0-10); HEMATOCRIT 33 % (35-52); HEMOGLOBIN 10.1 g/dL (11.5-16.0); LYMPHOCYTES # (AUTO) 1.2 10^3/uL (1.0-4.0); LYMPHOCYTES % (AUTO) 12 % (12-44); MEAN CORPUSCULAR HEMOGLOBIN 28 pg (25-34); MEAN CORPUSCULAR HGB CONC 30 g/dL (32-36); MEAN CORPUSCULAR VOLUME 91 fL (80-99); MEAN PLATELET VOLUME 9.1 fL (9.0-12.2); MONOCYTES # (AUTO) 0.9 10^3/uL (0.0-1.0); MONOCYTES % (AUTO) 8 % (0-12); NEUTROPHILS # (AUTO) 8.1 10^3/uL (1.8-7.8); NEUTROPHILS % (AUTO) 75 % (42-75); PLATELET COUNT 279 10^3/uL (130-400); RETICULOCYTE % 2.42 % (0.50-2.40); WHITE BLOOD COUNT 10.7 10^3/uL (4.3-11.0)
[2021-05-21 13:29] LABS: ERYTHROCYTE SEDIMENTATION RATE 82 MM/HR (0-30)
== END 2021-06-10 | disposition home or self-care (01) ==
LOC: ONC 11:52
PROVIDERS: ATTEND Internal Medicine Hematology & Oncology
DX: D72.829 Elevated white blood cell count, unspecified (principal)
CPT/HCPCS: 82607; 82728; 82746; 83540; 83550; 83615; 85025; 85045; 85652; G0463; 99215

== ENCOUNTER → 2021-07-15 | Outpatient (CLI) | payer OTHER, MEDICARE ==
[2021-07-15 06:54] LABS: ALBUMIN 3.3 GM/DL (3.2-4.5); POTASSIUM 3.7 MMOL/L (3.6-5.0)
[2021-07-15 06:56] LABS: CALCIUM 8.6 MG/DL (8.5-10.1)
[2021-07-15 06:57] LABS: TOTAL PROTEIN 6.4 GM/DL (6.4-8.2)
[2021-07-15 06:59] LABS: BILIRUBIN,TOTAL 0.8 MG/DL (0.1-1.0)
[2021-07-15 07:00] LABS: CREATININE SERUM 0.98 MG/DL (0.60-1.30)
== END ==
LOC: LABNPT 06:44
PROVIDERS: ATTEND Internal Medicine
DX: Z01.89 Encounter for other specified special examinations (principal)
CPT/HCPCS: 80053

== ENCOUNTER → 2021-07-28 | Outpatient (CLI) | payer OTHER, MEDICARE ==
[2021-07-30 06:36] LABS: BUN/CREATININE RATIO 15; CARBON DIOXIDE 27 MMOL/L (21-32); CHLORIDE 97 MMOL/L (98-107); CREATININE SERUM 0.93 MG/DL (0.60-1.30); GFR ESTIMATED 63; POTASSIUM 4.5 MMOL/L (3.6-5.0); SODIUM 138 MMOL/L (135-145)
[2021-07-30 06:37] LABS: ALANINE AMINOTRANSFERASE < 6 U/L (0-55); ALBUMIN 3.9 GM/DL (3.2-4.5); ALKALINE PHOSPHATASE 80 U/L (40-136); BILIRUBIN,TOTAL 1.4 MG/DL (0.1-1.0); CALCIUM 9.4 MG/DL (8.5-10.1); GLUCOSE 140 MG/DL (70-105); TOTAL PROTEIN 7.1 GM/DL (6.4-8.2)
== END ==
LOC: LABNPT 16:00
PROVIDERS: ATTEND Nurse Practitioner Family
DX: Z01.89 Encounter for other specified special examinations (principal)
CPT/HCPCS: 80053; 83605

== ENCOUNTER → 2021-07-29 | Outpatient (CLI) | payer OTHER, MEDICARE ==
[2021-07-29 07:41] LABS: ALBUMIN 3.1 GM/DL (3.2-4.5); BILIRUBIN,TOTAL 1.7 MG/DL (0.1-1.0); CALCIUM 8.4 MG/DL (8.5-10.1); CREATININE SERUM 0.99 MG/DL (0.60-1.30); POTASSIUM 4.1 MMOL/L (3.6-5.0); TOTAL PROTEIN 5.8 GM/DL (6.4-8.2)
== END ==
LOC: LABNPT 07:05
PROVIDERS: ATTEND Internal Medicine
DX: Z01.89 Encounter for other specified special examinations (principal)
CPT/HCPCS: 80053

== ENCOUNTER → 2022-02-02 | Outpatient (CLI) | payer MEDICARE, OTHER ==
[~2022-02-02] MED LIST changes: -CHOL200014 PO; +CHOL200052 PO
== END ==
LOC: GIR 07:33
PROVIDERS: ATTEND Internal Medicine
DX: Z53.9 Procedure and treatment not carried out, unspecified reason (principal)

== ENCOUNTER → 2022-02-02 | Outpatient (CLI) | payer OTHER, MEDICARE ==
[2022-02-02 08:09] LABS: ALBUMIN 2.8 GM/DL (3.2-4.5); CHLORIDE 100 MMOL/L (98-107); POTASSIUM 4.3 MMOL/L (3.6-5.0); SODIUM 138 MMOL/L (135-145)
[2022-02-02 08:11] LABS: CALCIUM 8.1 MG/DL (8.5-10.1)
[2022-02-02 08:12] LABS: GLUCOSE 279 MG/DL (70-105); TOTAL PROTEIN 5.7 GM/DL (6.4-8.2)
[2022-02-02 08:13] LABS: CARBON DIOXIDE 29 MMOL/L (21-32)
[2022-02-02 08:14] LABS: BILIRUBIN,TOTAL 0.6 MG/DL (0.1-1.0)
[2022-02-02 08:15] LABS: ALKALINE PHOSPHATASE 74 U/L (40-136); CREATININE SERUM 1.07 MG/DL (0.60-1.30); GFR ESTIMATED 53
[2022-02-02 08:17] LABS: BUN/CREATININE RATIO 18
[2022-02-02 08:18] LABS: ALANINE AMINOTRANSFERASE < 6 U/L (0-55)
== END ==
LOC: LABNPT 07:57
PROVIDERS: ATTEND Internal Medicine
DX: Z01.89 Encounter for other specified special examinations (principal)
CPT/HCPCS: 80053